=== PATIENT | female | born 1990 | race Caucasian/White ===

== ENCOUNTER 2024-06-05 17:10 | Inpatient (IN) | payer MEDICAID ==
[~2024-06-05] VITALS: Ht 165.1 cm; Wt 81.6 kg
[~2024-06-05 17:10] MED LIST: OXYTOCIN 10UNIT/ML 1ML VIAL ONE
[2024-06-05] MEDS ORDERED: LACT. RINGERS/OXYTOCIN 20UNITS 500 ML IV ONE ×2 (17:45→18:15)
[2024-06-05] MEDS ORDERED: LIDOCAINE 2%HCL (LOCAL ANESTH.) INJ 20ML MDV IJ PRN (17:45)
[2024-06-05] MEDS ORDERED: PREN-96 PO (17:57)
--- NOTE | 2024-06-05 18:12 | DVHHP2 ---
OB CC & HPI Date Date of Admission: Jun 05, 2024 Patient Identification: : 4 Para: 3 EDC: Jun 06, 2024 EGA: 39wks Chief Complaints: Reason for admission: active labor, rupture of membranes Admission Nurse Assessment Rev: No History of Present Complaints pt was on her way to [place] for at which point delivered in route Past Medical History Cardiac: No pertinent Hx Pulmonary: No pertinent Hx Central Nervous System: No pertinent Hx GI: No pertinent Hx Hemotology/Oncology: No pertinent Hx Hepatobiliary: No pertinent Hx Psychiatric: No pertinent Hx Musculoskeletal: No pertinent Hx Rheumotologic: No pertinent Hx Infectious Disease: No peritnent Hx ENT: No pertinent Hx Renal/: No pertinent Hx Endocrine: No pertinent Hx Dermatology: No pertinent Hx Past Surgical History: No pertinent Hx OB History OB History Care: Other Ultrasounds: No ultrasounds Obstetrical Complications: None Medical Complications: None Allergies: Coded Allergies: Azithromycin (Verified Allergy, Severe, 06/05/24) Home Meds Reported Medications Vit W/ Ferrous Fumara ( One Daily) Daily Tab, 1 TAB PO DAILY, #90 TAB 3 Refills 06/05/24 Current Medications Current Medications Medications (Trade) Dose Ordered Sig/Sawyer Route PRN Reason Start Time Stop Time Status Last Admin Bridger Liceael (Tucks) 1 pad PRN PRN TOP PERINEAL AREA DISCOMFORT 06/05/24 17:45 Sodium Lauryl Sulfate (Phisoderm) 240 ml PRN PRN TOP PERINEAL AREA DISCOMFORT 06/05/24 17:45 Benzocaine (Dermoplast) 1 applic PRN PRN TOP PERINEAL AREA DISCOMFORT 06/05/24 17:45 Lidocaine HCl (Xylocaine) 20 ml ONCE PRN IJ PERINEAL AREA DISCOMFORT 06/05/24 17:45 Ibuprofen (Motrin Tablet) 600 mg Q6HP PRN PO MODERATE PAIN (4-6 PAIN SCALE) 06/05/24 17:45 Acetaminophen (Tylenol Tablet) 650 mg Q4HP PRN PO MILD PAIN (1-3 PAIN SCALE) 06/05/24 17:45 Family & Social History Family/Social History Blood Type: Unknown Rubella: unknown RPR/VDRL: Unknown GBS Status: Unknown HBsAG: Unknown Review of Systems Constitutional: No symptom reported Ears, Nose, & Throat: No symptom reported Eyes: No symptom reported Pulmonary/Respiratory: No symptom reported Cardiovascular: No symptom reported Gastrointestinal: No symptom reported Genitourinary: No symptom reported Musculoskeletal: No symptom reported Skin: No symptom reported Psychiatric: No symptom reported Endocrine: No symptom reported Hemotologic/Lymphatic: No symptom reported OB Admission Exam Physical Exam HEENT: TMs Normal, Fontanelles Normal, Nasal Mucosa Normal, Eyes non-injected, Oropharynx Normal, PERRLA, Moist Membranes, EOMI Heart: Rhythm Normal Lungs: Clear Abdomen: Non tender Extremities: Normal Reflexes: Normal OB Plan Plan Admitting Diagnosis: BOA Plan: Expectant Management Other Plan: informed consent obtained,will repair perineal lac MARIA M HURST DO Jun 05, 2024 18:12
--- NOTE | 2024-06-05 18:15 | LDN2 ---
Labor and Delivery Note Date 06/05/24 Age 34 4 Para 4 EDC 11-10 EGA 39wks Diagnosis boa Vaginal Delivery: VTX Vacuum Assisted: No Placenta: Spontaneous Apgars 8-9 Nuchal Cord Transected: No Amniotic Fluid: Clear Anesthesia xylocaine Episiotomy: No Extension: Yes Repaired with 2-0 chromic EBL 300ml Complications none Conditions stable Comments/Significant Med Judi spec exam no cxal lac MARIA M HURST DO Jun 05, 2024 18:14
[2024-06-05 18:40] LABS: Basophils # (auto) 0 10 ^3/uL (0-0.2); Basophils % (auto) 0.2 % (0.0-2.0); Eosinophils # (auto) 0 10 ^3/uL (0-0.8); Eosinophils % (auto) 0.2 % (0.0-7.0); Hematocrit 41.2 % (36.0-46.0); Hemoglobin 14.1 g/dL (12.2-16.2); Lymphocytes # (auto) 0.9 10 ^3/uL (0.4-5.4); Lymphocytes % (auto) 7.1 % (10.0-50.0); Mean Corpuscular Hemoglobin 31.2 pg (28.0-32.0); Mean Corpuscular Hgb Conc. 34.2 g/dL (32.0-36.0); Mean Corpuscular Volume 91.1 fL (80.0-100.0); Monocytes # (auto) 0.4 10 ^3/uL (0-1.3); Monocytes % (auto) 3.2 % (0.0-12.0); Neutrophils # (auto) 11.2 10 ^3/uL (1.6-8.6); Neutrophils % (auto) 89.3 % (37.0-80.0); Nucleated Red Blood Cells % 0.2 %; Platelet Count (auto) 227 10^3/uL (140-450); Red Blood Cells 4.52 10^6/uL (4.0-5.20); White Blood Cell 12.5 10^3/uL (4.4-10.8)
[2024-06-05 18:54] LABS: Alanine Aminotransferase 14 U/L (7-40); Albumin 4.1 g/dL (3.2-4.8); Alkaline Phosphatase 208 U/L (46-116); Anion Gap 8 (5-15); Aspartate Aminotransferase 24 U/L (13-40); BUN/Creatinine Ratio 9.8 (10.0-20.0); Bilirubin, Total 0.3 mg/dL (0.2-1.0); Blood Urea Nitrogen 8 mg/dL (9-23); Calcium 9.4 mg/dL (8.7-10.4); Carbon Dioxide 23 mmol/L (20-31); Chloride 107 mmol/L (98-107); Glucose 94 mg/dL (74-106); Potassium 3.8 mmol/L (3.5-5.1); Sodium 138 mmol/L (136-145); Total Protein 6.9 g/dL (5.7-8.2)
[2024-06-05 19:00] LABS: INR 0.96 (0.9-1.15); Partial Thromboplastin Time 24.3 SEC (24.5-34.5); Prothrombin Time 10.2 sec (9.3-11.8)
[2024-06-05] MEDS: ONDANSETRON HCL 4 MG/2 ML VIAL IV PRN (19:49)
[2024-06-05] MEDS: WITCH HAZEL-GLYCERIN PAD TOP PRN (20:44)
[2024-06-05] MEDS: PHISODERM TOP SOLN 240ML BTL TOP PRN (20:44)
[2024-06-05] MEDS: DERMOPLAST 60ML BOTTLE TOP PRN (20:44)
[2024-06-05] MEDS: IBUPROFEN 600 MG TAB PO PRN (21:04)
[2024-06-05] MEDS: DOCUSATE SOD 100 MG CAP PO SCH (22:51)
[2024-06-05 23:00] VITALS: BP 124/76; PULSE 67; RESP 16; TEMP 98.7; O2SAT 98
[2024-06-06] MEDS: ACETAMINOPHEN 325 MG TAB PO PRN (00:49)
[2024-06-06 03:03] VITALS: PULSE 72; RESP 14; TEMP 98.9; O2SAT 99
--- NOTE | 2024-06-06 05:36 | DVHPN2 ---
Progress Note Date Seen: Jun 06, 2024 Subjective S: Lochia minimal. Regular diet well tolerated. Ambulating and voiding well w/o feeling dizzy or lightheaded. Perineal pain relieved with topical analgesics and cramps with oral analgesics. Passing flatus but no BM yet. w/o problem Desires & Requests to be discharged tomorrow vital signs Vital Sign Date Time Temp Pulse Resp B/P (MAP) Pulse Ox O2 Delivery O2 Flow Rate FiO2 06/06/24 03:03 98.9 72 14 99 98.9 Total Intake and Output 06/05/24 06/05/24 06/06/24 15:00 23:00 07:00 Output Total 550 ml 500 ml Balance -550 ml -500 ml medications Current Medications Medications Dose Ordered Sig/Sawyer Route Start Time Stop Time Status Last Admin Dose Admin Bridger [place] 1 pad PRN PRN TOP 06/05/24 17:45 06/05/24 20:44 1 PAD Sodium Lauryl Sulfate 240 ml PRN PRN TOP 06/05/24 17:45 06/05/24 20:44 240 ML Benzocaine 1 applic PRN PRN TOP 06/05/24 17:45 06/05/24 20:44 1 APPLIC Lidocaine HCl 20 ml ONCE PRN IJ 06/05/24 17:45 Ibuprofen 600 mg Q6HP PRN PO 06/05/24 17:45 06/06/24 05:20 600 MG Acetaminophen 650 mg Q4HP PRN PO 06/05/24 17:45 06/06/24 00:49 650 MG Docusate Sodium 200 mg HS PO 06/05/24 22:00 06/05/24 22:51 200 MG laboratory and microbiology Laboratory Tests 06/05/24 18:10 Test 06/05/24 18:10 Range/Units Serum Glucose 94 74-106 mg/dL Objective O: A&O x3 NAD. Afebrile, VSS Chest: heart and lung sounds normal. Breasts: Nipples intact w/o cracks or soreness Abdomen: normal BS, soft, non-tender, no rebound or guarding, fundus firm @ U- 1, Perineum:- no edema, or erythema, Extremities: no edema or tenderness Lochia - minimal Assessment/Plan 34yo now ppd#1_ s/p ( & BOA) doing well. Advanced maternal Age Blood Type: A Rh: Negative (per patient is also Rh neg via screening) Breast feeding Rubella: Immune Pain control with oral medications Bowel regimen: Increase fluid intake and fiber in diet, Laxative PRN Discharge plan: May discharge home later tomorrow if condition remains stable Plan discussed with: Patient, Spouse MIKE ORTIZ CNM Jun 06, 2024 05:36
[2024-06-06 06:30] VITALS: BP 97/51; PULSE 60; RESP 16; TEMP 97.7; O2SAT 97
[2024-06-06 11:30] VITALS: BP 104/53; PULSE 60; RESP 18; TEMP 97.7; O2SAT 97
[2024-06-06 15:30] VITALS: BP 103/60; PULSE 61; RESP 16; TEMP 98.4; O2SAT 96
[2024-06-06 18:30] VITALS: BP 108/52; PULSE 52; RESP 18; TEMP 98; O2SAT 97
[2024-06-06 23:11] VITALS: BP 96/58; PULSE 96; RESP 16; TEMP 98.4; O2SAT 98
--- NOTE | 2024-06-07 01:45 | DVHPN2 ---
Progress Note Date Seen: Jun 07, 2024 Subjective S: Lochia minimal. Regular diet well tolerated. Ambulating and voiding well w/o feeling dizzy or lightheaded. Perineal pain relieved with topical analgesics and cramps with oral analgesics. Passing flatus but no BM yet. w/o problem Desires and Requests to be discharged today vital signs Vital Sign Date Time Temp Pulse Resp B/P (MAP) Pulse Ox O2 Delivery O2 Flow Rate FiO2 06/06/24 23:11 98.4 96 16 96/58 (71) 98 98.4 06/06/24 18:30 Room Air Total Intake and Output 06/06/24 06/06/24 06/07/24 15:00 23:00 07:00 Output Total 300 ml Balance -300 ml medications Current Medications Medications Dose Ordered Sig/Sawyer Route Start Time Stop Time Status Last Admin Dose Admin Kayejarrod [place] 1 pad PRN PRN TOP 06/05/24 17:45 06/05/24 20:44 1 PAD Sodium Lauryl Sulfate 240 ml PRN PRN TOP 06/05/24 17:45 06/05/24 20:44 240 ML Benzocaine 1 applic PRN PRN TOP 06/05/24 17:45 06/05/24 20:44 1 APPLIC Lidocaine HCl 20 ml ONCE PRN IJ 06/05/24 17:45 Ibuprofen 600 mg Q6HP PRN PO 06/05/24 17:45 06/06/24 21:38 600 MG Acetaminophen 650 mg Q4HP PRN PO 06/05/24 17:45 06/06/24 16:57 650 MG Docusate Sodium 200 mg HS PO 06/05/24 22:00 06/05/24 22:51 200 MG laboratory and microbiology Laboratory Tests 06/05/24 18:10 Test 06/05/24 18:10 Range/Units Serum Glucose 94 74-106 mg/dL Objective O: A&O x3 NAD. Afebrile, VSS Chest: heart and lung sounds normal. Breasts: Nipples intact w/o cracks or soreness Abdomen: normal BS, soft, non-tender, no rebound or guarding, fundus firm @ U- 1, Perineum:- no edema, or erythema, laceration site with sutures intact, edges in good approximation. Hemorrhoids reducing in size Extremities: no edema or tenderness Lochia - minimal Assessment/Plan 34yo now ppd#2_ s/p ( & BOA) doing well. Blood Type: A Rh: Negative. (Infant Rh neg on screening per pt) Breast feeding Rubella: Immune Pain control with oral medications Bowel regimen: Increase fluid intake and fiber in diet, Laxative PRN Discharge plan: May discharge home later today if condition remains stable Plan discussed with: Patient, Spouse MIKE ORTIZ CNM Jun 07, 2024 01:45
--- NOTE | 2024-06-07 01:52 | DVHDS2 ---
Obstetrics Discharge Summary Obstetrics Discharge Summary Date of Admission: Jun 05, 2024 Date of Discharge: Jun 07, 2024 Reason For Admission: Others (s/p (, BOA)) Procedures: None Procedures: Hct/date: (41.2% on 06/05/24), Hgb/date: (14.1g/dL on 06/05/24), Others (Repair of Laceration) Operative Complicat: Laceration (Perineal) Discharge Diagnosis: Term -Delivered, Others (, BOA) Discharge Information: Activity (Unrestricted. Advance as tolerated. No heavy lifting, pushing or straining. Pelvic rest x 6weeks), Diet (Routine regular diet rich in fiber, protein, iron and vitamin C with adequate fluid intake.), Medications (Ibuprofen 600mg every 6 hours as needed for pain. Continue Vitamin and iron), Instructions ( self care instructions given. Po stpartum emergency signs and symptoms including pre-eclampsia precautions and signs of PPD reviewed with patient. Follow up with OB Provider in 1 week), Discharge to (Home) MIKE ORTIZ CNM Jun 07, 2024 01:51
[2024-06-07 03:30] VITALS: BP 101/68; PULSE 76; RESP 16; TEMP 98.1; O2SAT 98
[2024-06-07 07:00] VITALS: BP 110/61; PULSE 72; RESP 14; TEMP 98.5; O2SAT 97
[2024-06-07 11:30] VITALS: BP 118/76; PULSE 70; RESP 18; TEMP 98; O2SAT 96
[2024-06-07 11:45] VITALS: BP 118/76; PULSE 70; RESP 18; TEMP 98; O2SAT 96
[2024-06-08 07:06] LABS: RPR Non Reactive (Non Reactive)
[2024-06-08 12:07] LABS: Rubella Antibodies, IgG 1.69 index (Immune >0.99)
[2024-06-09 11:07] LABS: Treponema Pallidum Ab LC Non Reactive (Non Reactive)
== END 2024-06-07 11:45 | disposition home or self-care (01) | DRG 560 ==
LOC: LDRP 17:10 → UNDODISIN 06-07 11:45
PROVIDERS: ADMIT Obstetrics & Gynecology; ATTEND Obstetrics & Gynecology
PROC: 10E0XZZ Delivery of Products of Conception, External Approach (ICD-10-PCS; principal; 2024-06-05)
PROC: 0HQ9XZZ Repair Perineum Skin, External Approach (ICD-10-PCS; 2024-06-05)
DX: O34.219 Maternal care for unspecified type scar from previous cesarean delivery (principal); Z37.0 Single live birth; O70.0 First degree perineal laceration during delivery; Z3A.39 39 weeks gestation of pregnancy; Z67.11 Type A blood, Rh negative
CPT/HCPCS: 36415; 59414; 80053; 85025; 85610; 85730; 86592; 86703; 86762; 86780; 86803; 86850; 86900; 86901; 87340; 94760; 96374; G0378; J2405